=== PATIENT | male | born 1985 | race Caucasian/White ===

== ENCOUNTER 2016-10-01 08:20 | Emergency (ER) | payer MEDICAID ==
[~2016-10-01] VITALS: Ht 177.8 cm; Wt 85.0 kg
[2016-10-01 08:22] VITALS: BP 137/87; PULSE 84; RESP 20; TEMP 98.4; O2SAT 99
[2016-10-01] MEDS ORDERED: CLON0.5T PO (08:27)
[2016-10-01] MEDS ORDERED: LISI2.5T3 PO (08:27)
[2016-10-01] MEDS ORDERED: CELE40TA PO (08:27)
[2016-10-01] MEDS ORDERED: IBUP800T23 PO (08:35)
[2016-10-01] MEDS ORDERED: CIPR0.3S LEFT EAR (08:35)
--- NOTE | 2016-10-01 08:37 | PD ---
HPI Chief Complaint: ENT Complaint Time Seen by Provider: 08:32 Travel History International Travel<30 days: No Contact w/Intl Traveler<30days: No Traveled to known affect area: No History of Present Illness HPI 31-year-old male visiting from out of town, presents to [facility] department for evaluation left ear pain worsening over the last 2 days. Patient states he is unable to hear except for mouth sounds on the left ear. He states it feels very swollen and the pain is constant, throbbing. Patient denies fever or chills. No trauma. No cold, cough, congestion symptoms. No other symptoms to report this time. PFSH Past Medical History Anxiety: Yes Depression: Yes Hypertension: Yes Social History Alcohol Use: No Tobacco Use: Yes Substance Use: No Allergies-Medications Reported Meds & Prescriptions Reported Meds & Active Scripts Active Reported Lisinopril 2.5 Mg Tab 2.5 Mg PO DAILY Clonazepam 0.5 Mg Tab 0.5 Mg PO TID Celexa (Citalopram Hydrobromide) 40 Mg Tab 40 Mg PO DAILY Review of Systems Except as stated in HPI: all other systems reviewed are Neg Physical Exam Narrative GENERAL: Well-nourished, well-developed male patient in no acute distress SKIN: Focused skin assessment warm/dry. HEAD: Normocephalic. No mastoid tenderness EARS: Bilateral pinnae and right external canals appear within normal limits. The right tympanic membranes without erythema, dullness or perforation. I'm unable to visualize left tympanic membrane due to significant canal edema. EYES: No scleral icterus. No injection or drainage. ENT: Mucosa pink and moist. No erythema or exudates. No uvular edema. No uvular , palatal, or tonsillar deviation. Airway patent. Nasal turbinates appear normal without nasal blood, purulent drainage or septal hematoma. NECK: Supple, trachea midline. No JVD or lymphadenopathy. CARDIOVASCULAR: Regular rate and rhythm without murmurs, gallops, or rubs. RESPIRATORY: Breath sounds equal bilaterally. No accessory muscle use. Data Data Last Documented VS Vital Signs Date Time Temp Pulse Resp B/P Pulse Ox O2 Delivery O2 Flow Rate FiO2 10/01/16 08:22 98.4 84 20 137/87 99 Room Air MDM Medical Decision Making Medical Screen Exam Complete: Yes Emergency Medical Condition: Yes Medical Record Reviewed: Yes Differential Diagnosis Otitis externa versus otitis media versus contact dermatitis versus psoriasis Narrative Course 31-year-old male presents to emergency department for evaluation left ear pain. Physical exam is consistent with an otitis externa. Patient be started on Ciprodex drops and encouraged to seek primary care follow-up. He agrees to return immediately with any acute worsening symptoms. Diagnosis Primary Impression: Otitis externa of left ear Qualified Code: H60.502 - Acute otitis externa of left ear, unspecified type Referrals: Primary Care Physician Patient Instructions: General Instructions, Otitis Externa (ED) Additional Instructions: Avoid water submersion Do not the foreign bodies in your ear Return immediately with any acute worsening of symptoms Med/Other Pt SpecificInfo: Prescription(s) given Scripts Ibuprofen 800 Mg [id number] Mg PO Q8H PRN (Pain/Inflammation) #30 TAB Ref 0 Prov:Shanda Mast 10/01/16 Ciprofloxacin-Dexamethasone Otic Drops (Ciprodex Otic Drops)0.3-0.1% Susp4 Drop LEFT EAR BID #1 BOTTLE Ref 0 Prov:Shanda Mast 10/01/16 Disposition: 01 DISCHARGE HOME Condition: Stable Shanda Mast Oct 01, 2016 08:37
== END 2016-10-01 08:59 | disposition home or self-care (01) ==
LOC: NED 08:20
DX: H60.92 Unspecified otitis externa, left ear (principal); F41.9 Anxiety disorder, unspecified; F32.9 Major depressive disorder, single episode, unspecified; I10 Essential (primary) hypertension; Z79.899 Other long term (current) drug therapy; Z72.0 Tobacco use
CPT/HCPCS: 99283